=== PATIENT | female | born 1970 | race Caucasian/White ===

== ENCOUNTER 2017-07-27 10:13 | Outpatient (CLI) | payer OTHER ==
[~2017-07-27 10:13] MED LIST: CIPRO500 MG PO; CODE1TAB37 PO; FLAGYL500MG PO; IBUPROFEN IB100 MG; INTEGRA F CAPS1 EACH PO; LISINOPRIL2.5 MG PO; OMEPRAZOLE20 M1 PO; PROBIOTIC & AC1 EACH PO; TYLENOL325 MG PO
== END 2017-07-27 10:17 | disposition home or self-care (01) ==
LOC: LAB 10:13
DX: R10.9 Unspecified abdominal pain (principal)

== ENCOUNTER 2017-07-27 12:05 | Outpatient (CLI) | payer OTHER | END 2017-07-27 15:11 | disposition home or self-care (01) | LOC: TOM 12:05 | DX: R10.32 Left lower quadrant pain (principal); R10.31 Right lower quadrant pain | CPT/HCPCS: 74177; Q9965 ==

== ENCOUNTER → 2017-07-28 | Emergency (ER) | payer OTHER ==
[~2017-07-28] VITALS: Ht 157.5 cm; Wt 55.3 kg
== END | disposition home or self-care (01) ==
LOC: ER 13:42
DX: L02.211 Cutaneous abscess of abdominal wall (principal); R10.84 Generalized abdominal pain

== ENCOUNTER 2017-08-15 07:27 | Outpatient (CLI) | payer OTHER | END 2017-08-15 07:31 | disposition home or self-care (01) | LOC: SONOGRAMA 07:27 → MAMO-SONO 07:45 | DX: K35.3 Acute appendicitis with localized peritonitis (principal) ==